=== PATIENT | male | born 2000 | race Caucasian/White ===

== ENCOUNTER 2021-02-05 08:15 | Emergency (ER) | payer SELFPAY ==
[2021-02-05 08:26] VITALS: BP 122/65; PULSE 63; RESP 16; TEMP 36.9; O2SAT 100
--- NOTE | 2021-02-05 08:34 | ED.GENADULT ---
HPI - General Adult General Chief complaint: Abdominal Pain Stated complaint: Knot on Stomach Time Seen by Provider: 02/05/21 08:32 Source: patient and RN notes reviewed Mode of arrival: ambulatory Limitations: no limitations History of Present Illness HPI narrative: 20-year-old male presents concern for a knot on his stomach. Reported is tender and painful. Reports it is right above his bellybutton. He denies any redness, warmth to the area. Reports lifts heavy objects at work and works out often. He reports normal appetite, slight nausea without vomiting. Reports his last bowel movement was yesterday and was normal. He denies fever, body aches, chills. MD complaint: Abdominal mass Related Data Home Medications Medication Instructions Recorded Confirmed No Home Medications 02/05/21 02/05/21 Allergies Allergy/AdvReac Type Severity Reaction Status Date / Time No Known Allergies Allergy Verified 02/05/21 08:36 Review of Systems Review of Systems: CONSTITUTIONAL: Denies malaise, chills, sweats, or fever. GASTROINTESTINAL: Reports periumbilical abdominal pain, nausea. Denies vomiting, diarrhea, bloody, or mucous stools. GENITOURINARY: Denies dysuria or hematuria. SKIN: Denies redness, warmth on the abdomen MUSCULOSKELETAL: Denies myalgia. All systems reviewed & are unremarkable except as noted in HPI and below PMFSH Comments At time of signature, agree with nursing past medical, surgical, social and family history. There is no relevant family history pertinent to the presenting complaint Exam Narrative: GENERAL: Well-appearing, well-nourished, and in no acute distress. HEAD: Normocephalic, atraumatic. EYES: PERRLA, conjunctivae clear, and EOMI. ENT: Mucous membranes moist. NECK: Supple. CHEST: Speaks in full sentences. No respiratory distress. HEART: Regular rate and rhythm. ABDOMEN: Soft, flat, nondistended. No guarding, rebound tenderness, or rigid. No pulsatille masses. Bowel sounds present in all four quadrants. No organomegaly. Negative Styles?s sign. Periumbilical tenderness with tender nonreducible mass consistent with possible strangulated hernia. No scars or surface trauma. SKIN: Warm, dry, no rash. NEURO: Alert and oriented x3. PSYCH: Normal mood and affect Course Course Emergency Course: Patient is aware of, understands and agrees to be seen in the emergency department. Patient agrees to proceed directly to the emergency department. Portions of this record may have been created with voice recognition software Vital Signs Vital signs: Vital Signs Temperature 98.5 F 02/05/21 08:26 Pulse Rate 63 02/05/21 08:26 Respiratory Rate 16 02/05/21 08:26 Blood Pressure 122/65 02/05/21 08:26 Pulse Oximetry 100 02/05/21 08:26 Temperature 98.5 F 02/05/21 08:26 Pulse Rate 63 02/05/21 08:26 Respiratory Rate 16 02/05/21 08:26 Blood Pressure 122/65 02/05/21 08:26 Pulse Oximetry 100 02/05/21 08:26 Reviewed. Transfer Transfered to: [facility]) Transportation: Other (Private vehicle) Transfer rationale: Abdominal mass Accepting physician: [place] Transfer comments: Patient stable for transfer via private vehicle Medical Decision Making MDM Narrative Medical decision making narrative: Exam findings warrant further evaluation the emergency department; patient is non-toxic appearing and is in no distress. Patient is appropriate for transfer via private vehicle Vital Signs Vital Signs: Vital Signs Temperature 98.5 F 02/05/21 08:26 Pulse Rate 63 02/05/21 08:26 Respiratory Rate 16 02/05/21 08:26 Blood Pressure 122/65 02/05/21 08:26 Pulse Oximetry 100 02/05/21 08:26 Temperature 98.5 F 02/05/21 08:26 Pulse Rate 63 02/05/21 08:26 Respiratory Rate 16 02/05/21 08:26 Blood Pressure 122/65 02/05/21 08:26 Pulse Oximetry 100 02/05/21 08:26 Critical Care Time Critical Care Time Critical Care Time: No Discharge Plan D
== END 2021-02-05 08:45 | disposition short-term general hospital (02) ==
PROVIDERS: Emergency Provider Nurse Practitioner
DX: R22.2 Localized swelling, mass and lump, trunk (principal)
CPT/HCPCS: 99212; G0463